=== PATIENT | female | born 1940 | race Caucasian/White ===

== ENCOUNTER 2020-08-25 15:10 | Outpatient (CLI) | payer MEDICARE, BC ==
[2020-08-25 16:26] LABS: BASOPHILS % (AUTO) 0.3 % (0.0-2.0); HEMATOCRIT 44 % (33-45); HEMOGLOBIN 14.8 g/dL (11.5-14.8); LYMPHOCYTES # (AUTO) 2.5 /CMM (0.8-4.8); LYMPHOCYTES % (AUTO) 38.1 % (20.0-44.0); MEAN CORPUSCULAR HGB CONC 34 g/dl (31.0-36.0); MEAN CORPUSCULAR VOLUME 95 fL (82-100); MONOCYTES # (AUTO) 0.4 /CMM (0.1-1.30); MONOCYTES % (AUTO) 6.3 % (2.0-12.0); NEUTROPHILS # (AUTO) 3.4 /CMM (1.8-8.9); NEUTROPHILS % (AUTO) 52.3 % (43.0-81.0); PLATELET COUNT (AUTO) 314 /CMM (150-450); RED BLOOD CELL COUNT(AUTO) 4.59 MIL/uL (4.0-5.2); WHITE BLOOD COUNT (AUTO) 6.5 K/uL (4.3-11.0)
[2020-08-25 16:44] LABS: ALBUMIN 3.7 g/dL (3.4-5.0); BILIRUBIN,TOTAL 0.3 mg/dL (0.2-1.0); CALCIUM, SERUM 8.5 mg/dL (8.5-10.1); CREATININE 0.6 mg/dL (0.6-1.3); MAGNESIUM 2.2 mg/dL (1.8-2.4); PHOSPHORUS 3.2 mg/dL (2.5-4.9); TOTAL PROTEIN, SERUM 7.3 g/dL (6.4-8.2)
[2020-08-25 16:53] LABS: FREE T4 (FREE THYROXINE) 0.84 ng/dL (0.76-1.46); THYROID STIMULATING HORMONE 2.005 uIU/mL (0.358-3.74)
== END 2020-08-25 23:59 | disposition home or self-care (01) ==
LOC: MSC 15:10
PROVIDERS: ATTEND Internal Medicine
DX: E03.9 Hypothyroidism, unspecified (principal); N95.1 Menopausal and female climacteric states; I10 Essential (primary) hypertension; E11.9 Type 2 diabetes mellitus without complications; E78.5 Hyperlipidemia, unspecified; M85.80 Other specified disorders of bone density and structure, unspecified site; Z79.51 Long term (current) use of inhaled steroids; Z79.899 Other long term (current) drug therapy
CPT/HCPCS: 80053; 83036; 83735; 84100; 84439; 84443; 85025; G0463

== ENCOUNTER 2020-11-01 13:12 | Outpatient (CLI) | payer MEDICARE, BC | END 2020-11-01 23:59 | disposition home or self-care (01) | LOC: MSC 13:12 | PROVIDERS: ATTEND Internal Medicine | DX: M25.519 Pain in unspecified shoulder (principal); M25.562 Pain in left knee; W19.XXXA Unspecified fall, initial encounter; E11.9 Type 2 diabetes mellitus without complications; I10 Essential (primary) hypertension; E03.9 Hypothyroidism, unspecified; N95.1 Menopausal and female climacteric states; E78.5 Hyperlipidemia, unspecified; M85.80 Other specified disorders of bone density and structure, unspecified site; Z79.52 Long term (current) use of systemic steroids; Z79.899 Other long term (current) drug therapy | CPT/HCPCS: 73030; 73564; G0463 ==

== ENCOUNTER → 2021-03-27 | Outpatient (CLI) | payer MEDICARE, BC | END | disposition home or self-care (01) | LOC: MSC 14:30 | PROVIDERS: ATTEND Internal Medicine | DX: Z51.89 Encounter for other specified aftercare (principal); E11.9 Type 2 diabetes mellitus without complications; I10 Essential (primary) hypertension; E03.9 Hypothyroidism, unspecified; Z79.890 Hormone replacement therapy; N95.1 Menopausal and female climacteric states; E78.5 Hyperlipidemia, unspecified; M85.80 Other specified disorders of bone density and structure, unspecified site; Z79.52 Long term (current) use of systemic steroids; Z79.899 Other long term (current) drug therapy ==

== ENCOUNTER 2021-05-01 14:00 | Outpatient (CLI) | payer MEDICARE, BC | END 2021-05-01 23:59 | disposition home or self-care (01) | LOC: MSC 14:00 | PROVIDERS: ATTEND Internal Medicine | DX: E03.9 Hypothyroidism, unspecified (principal); Z79.890 Hormone replacement therapy; E11.9 Type 2 diabetes mellitus without complications; I10 Essential (primary) hypertension; N95.1 Menopausal and female climacteric states; E78.5 Hyperlipidemia, unspecified; M85.80 Other specified disorders of bone density and structure, unspecified site; Z79.52 Long term (current) use of systemic steroids; Z79.899 Other long term (current) drug therapy ==

== ENCOUNTER → 2021-08-29 | Outpatient (CLI) | payer MEDICARE, BC | END | disposition home or self-care (01) | LOC: MSC 16:00 | PROVIDERS: ATTEND Internal Medicine | DX: E03.9 Hypothyroidism, unspecified (principal); Z79.890 Hormone replacement therapy; Z91.81 History of falling; E11.9 Type 2 diabetes mellitus without complications; I10 Essential (primary) hypertension; N95.1 Menopausal and female climacteric states; E78.5 Hyperlipidemia, unspecified; M85.80 Other specified disorders of bone density and structure, unspecified site; Z79.82 Long term (current) use of aspirin; Z79.899 Other long term (current) drug therapy ==

== ENCOUNTER → 2021-09-05 | Outpatient (CLI) | payer MEDICARE, BC | END | disposition home or self-care (01) | LOC: MSC 15:00 | PROVIDERS: ATTEND Internal Medicine | DX: E03.9 Hypothyroidism, unspecified (principal); Z79.890 Hormone replacement therapy; E78.5 Hyperlipidemia, unspecified; E11.9 Type 2 diabetes mellitus without complications; I10 Essential (primary) hypertension; N95.1 Menopausal and female climacteric states; M85.80 Other specified disorders of bone density and structure, unspecified site ==

== ENCOUNTER 2022-02-12 15:00 | Outpatient (CLI) | payer MEDICARE, BC | END 2022-02-12 23:59 | disposition home or self-care (01) | LOC: MSC 15:00 | PROVIDERS: ATTEND Internal Medicine | DX: E03.9 Hypothyroidism, unspecified (principal); Z79.890 Hormone replacement therapy; E78.5 Hyperlipidemia, unspecified; E11.9 Type 2 diabetes mellitus without complications; I10 Essential (primary) hypertension; N95.1 Menopausal and female climacteric states; M85.80 Other specified disorders of bone density and structure, unspecified site; Z91.81 History of falling ==

== ENCOUNTER 2022-04-30 11:34 | Outpatient (CLI) | payer MEDICARE, BC ==
[2022-04-30 13:10] LABS: BASOPHILS # (AUTO) 0.1 K/uL (0.0-0.2); BASOPHILS % (AUTO) 1.4 % (0.0-2.0); EOSINOPHILS % (AUTO) 2.7 % (0.0-6.0); HEMATOCRIT 42 % (33-45); HEMOGLOBIN 14.2 g/dL (11.5-14.8); LYMPHOCYTES # (AUTO) 2.8 K/uL (0.8-4.8); MEAN CORPUSCULAR HGB CONC 34 g/dl (31.0-36.0); MEAN CORPUSCULAR VOLUME 93 fL (82-100); MONOCYTES # (AUTO) 0.7 K/uL (0.1-1.30); MONOCYTES % (AUTO) 10.1 % (2.0-12.0); NEUTROPHILS # (AUTO) 2.9 K/uL (1.8-8.9); NEUTROPHILS % (AUTO) 43.8 % (43.0-81.0); PLATELET COUNT (AUTO) 308 K/uL (150-450); RED BLOOD CELL COUNT(AUTO) 4.52 MIL/uL (4.0-5.2); WHITE BLOOD COUNT (AUTO) 6.7 K/uL (4.3-11.0)
[2022-04-30 14:13] LABS: ALANINE AMINOTRANSFERASE 20 U/L (12-78); ALBUMIN 3.8 g/dL (3.4-5.0); ALKALINE PHOSPHATASE 77 U/L (46-116); ASPARTATE AMINOTRANSFERASE 24 U/L (15-37); BILIRUBIN,TOTAL 0.3 mg/dL (0.2-1.0); CALCIUM, SERUM 8.4 mg/dL (8.5-10.1); CARBON DIOXIDE 23 mmol/L (21-32); CHLORIDE 106 mmol/L (98-107); CREATININE 0.4 mg/dL (0.6-1.3); GLUCOSE 93 mg/dL (74-106); MAGNESIUM 2.1 mg/dL (1.8-2.4); PHOSPHORUS 3.7 mg/dL (2.5-4.9); POTASSIUM 4.5 mmol/L (3.5-5.1); SODIUM SERUM 140 mmol/L (136-145); TOTAL PROTEIN, SERUM 7.6 g/dL (6.4-8.2); UREA NITROGEN, BLOOD 16 mg/dL (7-18)
== END 2022-04-30 23:59 | disposition home or self-care (01) ==
LOC: MSC 11:34
PROVIDERS: ATTEND Internal Medicine
DX: M54.32 Sciatica, left side (principal); R05.9 Cough, unspecified; M79.662 Pain in left lower leg; M79.661 Pain in right lower leg; R63.5 Abnormal weight gain; E87.5 Hyperkalemia; I10 Essential (primary) hypertension; E03.9 Hypothyroidism, unspecified; Z79.890 Hormone replacement therapy; E78.5 Hyperlipidemia, unspecified; E11.9 Type 2 diabetes mellitus without complications; N95.1 Menopausal and female climacteric states; M85.80 Other specified disorders of bone density and structure, unspecified site; Z79.899 Other long term (current) drug therapy
CPT/HCPCS: 36415; 71045; 80053; 83036; 83735; 84100; 84439; 84443; 85025; G0463

== ENCOUNTER → 2022-05-07 | Outpatient (CLI) | payer MEDICARE, BC | END | disposition home or self-care (01) | LOC: MSC 14:00 | PROVIDERS: ATTEND Internal Medicine | DX: M54.32 Sciatica, left side (principal); M79.662 Pain in left lower leg; M79.661 Pain in right lower leg; H61.23 Impacted cerumen, bilateral; R63.5 Abnormal weight gain; E87.5 Hyperkalemia; I10 Essential (primary) hypertension; R05.9 Cough, unspecified; E03.9 Hypothyroidism, unspecified; Z79.890 Hormone replacement therapy; E78.5 Hyperlipidemia, unspecified; E11.9 Type 2 diabetes mellitus without complications; N95.1 Menopausal and female climacteric states; M85.80 Other specified disorders of bone density and structure, unspecified site ==

== ENCOUNTER 2022-12-26 14:30 | Outpatient (CLI) | payer MEDICARE, BC | END 2022-12-26 23:59 | disposition home or self-care (01) | LOC: MSC 14:30 | PROVIDERS: ATTEND Internal Medicine | DX: Z09 Encounter for follow-up examination after completed treatment for conditions other than malignant neoplasm (principal); M54.32 Sciatica, left side; M79.662 Pain in left lower leg; M79.661 Pain in right lower leg; H61.23 Impacted cerumen, bilateral; R63.5 Abnormal weight gain; E87.5 Hyperkalemia; I10 Essential (primary) hypertension; R05.9 Cough, unspecified; E03.9 Hypothyroidism, unspecified; Z79.890 Hormone replacement therapy; E78.5 Hyperlipidemia, unspecified; E11.9 Type 2 diabetes mellitus without complications; N95.1 Menopausal and female climacteric states; M85.80 Other specified disorders of bone density and structure, unspecified site ==

== ENCOUNTER 2023-01-29 14:00 | Outpatient (CLI) | payer MEDICARE, BC | END 2023-01-29 23:59 | disposition home or self-care (01) | LOC: WOU 14:00 | PROVIDERS: ATTEND Podiatrist Foot & Ankle Surgery | DX: L60.2 Onychogryphosis (principal); B35.1 Tinea unguium; I73.9 Peripheral vascular disease, unspecified; M79.672 Pain in left foot; M79.671 Pain in right foot | CPT/HCPCS: G0463 ==

== ENCOUNTER 2023-03-06 10:31 | Outpatient (CLI) | payer MEDICARE, BC ==
[2023-03-06 11:53] LABS: BASOPHILS # (AUTO) 0.1 K/uL (0.0-0.2); BASOPHILS % (AUTO) 1.2 % (0.0-2.0); EOSINOPHILS % (AUTO) 3.3 % (0.0-6.0); HEMATOCRIT 44 % (33-45); HEMOGLOBIN 14.5 g/dL (11.5-14.8); LYMPHOCYTES # (AUTO) 2.2 K/uL (0.8-4.8); MEAN CORPUSCULAR HGB CONC 33 g/dl (31.0-36.0); MEAN CORPUSCULAR VOLUME 94 fL (82-100); MONOCYTES # (AUTO) 0.6 K/uL (0.1-1.30); MONOCYTES % (AUTO) 9.3 % (2.0-12.0); NEUTROPHILS # (AUTO) 2.9 K/uL (1.8-8.9); NEUTROPHILS % (AUTO) 49.2 % (43.0-81.0); PLATELET COUNT (AUTO) 328 K/uL (150-450); RED BLOOD CELL COUNT(AUTO) 4.71 MIL/uL (4.0-5.2)
[2023-03-06 12:46] LABS: ALBUMIN 3.7 g/dL (3.4-5.0); BILIRUBIN,TOTAL 0.4 mg/dL (0.2-1.0); CREATININE 0.6 mg/dL (0.6-1.3); MAGNESIUM 2.2 mg/dL (1.8-2.4); PHOSPHORUS 3.9 mg/dL (2.5-4.9); POTASSIUM 3.9 mmol/L (3.5-5.1); TOTAL PROTEIN, SERUM 7.3 g/dL (6.4-8.2)
[2023-03-06 13:29] LABS: C-REACTIVE PROTEIN 0.2 mg/dL (0.0-0.9)
[2023-03-06 14:16] LABS: THYROID STIMULATING HORMONE 1.538 uIU/mL (0.358-3.74)
== END 2023-03-06 23:59 | disposition home or self-care (01) ==
LOC: MSC 10:31
PROVIDERS: ATTEND Internal Medicine
DX: R51.9 Headache, unspecified (principal); H53.8 Other visual disturbances; F41.8 Other specified anxiety disorders; M54.32 Sciatica, left side; M79.662 Pain in left lower leg; M79.661 Pain in right lower leg; H61.23 Impacted cerumen, bilateral; R63.5 Abnormal weight gain; E87.5 Hyperkalemia; I10 Essential (primary) hypertension; R05.9 Cough, unspecified; Z79.890 Hormone replacement therapy; E78.5 Hyperlipidemia, unspecified; E11.9 Type 2 diabetes mellitus without complications; N95.1 Menopausal and female climacteric states; M85.80 Other specified disorders of bone density and structure, unspecified site
CPT/HCPCS: 80061; 85025; 83735; 83036; 84100; 85652; 36415; 82746; 84443; 82607; 80053; 86140; G0463

== ENCOUNTER 2023-03-12 13:00 | Outpatient (CLI) | payer MEDICARE, BC | END 2023-03-12 23:59 | disposition home or self-care (01) | LOC: MRI 13:00 | PROVIDERS: ATTEND Internal Medicine | DX: I61.0 Nontraumatic intracerebral hemorrhage in hemisphere, subcortical (principal); R51.9 Headache, unspecified; H53.8 Other visual disturbances | CPT/HCPCS: 70551-TC ==

== ENCOUNTER 2023-03-13 14:00 | Outpatient (CLI) | payer MEDICARE, BC | END 2023-03-13 23:59 | disposition home or self-care (01) | LOC: MSC 14:00 | PROVIDERS: ATTEND Internal Medicine | DX: R51.9 Headache, unspecified (principal); H53.8 Other visual disturbances; I10 Essential (primary) hypertension; F41.8 Other specified anxiety disorders; M54.32 Sciatica, left side; M79.662 Pain in left lower leg; M79.661 Pain in right lower leg; H61.23 Impacted cerumen, bilateral; R63.5 Abnormal weight gain; E87.5 Hyperkalemia; E78.5 Hyperlipidemia, unspecified; R05.9 Cough, unspecified; E03.9 Hypothyroidism, unspecified; Z79.890 Hormone replacement therapy; E11.9 Type 2 diabetes mellitus without complications; N95.1 Menopausal and female climacteric states; M85.80 Other specified disorders of bone density and structure, unspecified site ==

== ENCOUNTER 2023-04-02 14:05 | Outpatient (CLI) | payer MEDICARE, BC | END 2023-04-02 23:59 | disposition home or self-care (01) | LOC: WOU 14:05 | PROVIDERS: ATTEND Podiatrist Foot & Ankle Surgery | DX: L60.2 Onychogryphosis (principal); B35.1 Tinea unguium; I73.9 Peripheral vascular disease, unspecified; M79.672 Pain in left foot; M79.671 Pain in right foot; I10 Essential (primary) hypertension; E03.9 Hypothyroidism, unspecified | CPT/HCPCS: G0463 ==

== ENCOUNTER 2025-05-17 11:40 | Inpatient (IN) | payer MEDICARE, BC ==
[~2025-05-17] VITALS: Ht 142.2 cm; Wt 48.6 kg
[2025-05-17 12:06] LABS: PLATELET COUNT (AUTO) 353 K/uL (150-450); RED BLOOD CELL COUNT(AUTO) 5.19 MIL/uL (4.0-5.2); RED CELL DISTRIBUTION WIDTH 14.5 % (11.5-15.0); WHITE BLOOD COUNT (AUTO) 18.7 K/uL (4.3-11.0)
[2025-05-17] MEDS ORDERED: ONDANSETRON HCL/PF 4 MG/2 ML VIAL ONE (12:08)
[2025-05-17] MEDS ORDERED: MORPHINE SULFATE INJ 2 MG/ML DISP.SYRIN ONE (12:08)
[2025-05-17 12:11] LABS: CALCIUM, SERUM 9.2 mg/dL (8.5-10.1); CREATININE 0.7 mg/dL (0.6-1.3); SODIUM SERUM 131 mmol/L (136-145); UREA NITROGEN, BLOOD 25 mg/dL (7-18)
[2025-05-17 12:17] LABS: ASPARTATE AMINOTRANSFERASE 16 U/L (15-37); TOTAL PROTEIN, SERUM 7.6 g/dL (6.4-8.2)
[2025-05-17] MEDS: IV NS 0.9% 1,000 ML BAG IV ONE (12:39)
[2025-05-17] MEDS: MORPHINE SULFATE INJ 2 MG/ML DISP.SYRIN IV ONE (12:40)
[2025-05-17] MEDS: ONDANSETRON HCL/PF 4 MG/2 ML VIAL IVP ONE (12:40)
[2025-05-17] MEDS ORDERED: LACT-239 PO (12:58)
[2025-05-17] MEDS ORDERED: LOPE2CAP40 PO (12:58)
[2025-05-17] MEDS ORDERED: LEVO75TA7 PO ×2 (12:58)
[2025-05-17] MEDS ORDERED: VALS160T29 PO (12:58)
[2025-05-17] MEDS: PIPERACILLIN /TAZOBACTAM 3.375 G in IV D5W 50 ML IV ONE (13:29)
[2025-05-17 13:30] LABS: APPEARANCE,URINE CLEAR (CLEAR); BLOOD, URINE Small Ery/uL (NEGATIVE); LEUKOCYTE ESTERASE ,URINE Negative (NEGATIVE); UGLUCOSE Negative (NEGATIVE)
[2025-05-17 13:32] LABS: NITRITE, URINE NEGATIVE (NEGATIVE)
[2025-05-17 13:34] LABS: ADD URINE CULTURE NO; SQUAMOUS EPITHELIAL CELL,UR Many /HPF (None Seen)
[2025-05-17] MEDS ORDERED: MAG HYDROX/AL HYDROX/SIMETH 30 ML UDC PO PRN (14:30)
[2025-05-17] MEDS ORDERED: MAGNESIUM HYDROXIDE 30 ML UDC PO PRN (14:30)
[2025-05-17] MEDS ORDERED: ONDANSETRON HCL/PF 4 MG/2 ML VIAL IVP PRN (14:30)
[2025-05-17] MEDS ORDERED: DOSING PER PHARMACY-ZOSYN IV 1 EA EA XX PRN (14:30)
[2025-05-17] MEDS ORDERED: MORPHINE SULFATE INJ 2 MG/ML DISP.SYRIN IV PRN (14:30)
[2025-05-17] MEDS: IV NS 0.9% 1,000 ML IV PRN (15:45)
[2025-05-17 16:17] VITALS: BP 124/48; TEMP 98.6; O2SAT 94
[2025-05-17] MEDS ORDERED: PIPERACILLIN /TAZOBACTAM 3.375 G in IV D5W 50 ML IV SCH (18:00)
[2025-05-17] MEDS: ZOSYN IVPB 2.25 G in IV D5W 50ml IV SCH (18:25)
[2025-05-17] MEDS: MORPHINE SULFATE INJ 2 MG/ML DISP.SYRIN IV PRN (18:26)
[2025-05-17 20:00] VITALS: BP_SYST 130; BP_SYST 142; BP_DIAS 47; BP_DIAS 58; TEMP 97.3; TEMP 98.2; O2SAT 100; O2SAT 96
[2025-05-18 06:55] LABS: PLATELET COUNT (AUTO) 301 K/uL (150-450); RED BLOOD CELL COUNT(AUTO) 4.68 MIL/uL (4.0-5.2); RED CELL DISTRIBUTION WIDTH 14.3 % (11.5-15.0); WHITE BLOOD COUNT (AUTO) 14.0 K/uL (4.3-11.0)
[2025-05-18 07:04] LABS: CALCIUM, SERUM 8.4 mg/dL (8.5-10.1); CREATININE 0.5 mg/dL (0.6-1.3); PHOSPHORUS 3.0 mg/dL (2.5-4.9); SODIUM SERUM 135.0 mmol/L (136-145); UREA NITROGEN, BLOOD 16.0 mg/dL (7-18)
[2025-05-18 08:00] VITALS: BP 108/50; TEMP 97.9; O2SAT 94
[2025-05-18 16:00] VITALS: BP 114/46; TEMP 97.9; O2SAT 97
[2025-05-18 20:00] VITALS: BP 127/45; TEMP 98.8; O2SAT 96
[2025-05-19 06:47] LABS: PLATELET COUNT (AUTO) 321 K/uL (150-450); RED BLOOD CELL COUNT(AUTO) 4.40 MIL/uL (4.0-5.2); RED CELL DISTRIBUTION WIDTH 14.2 % (11.5-15.0); WHITE BLOOD COUNT (AUTO) 12.7 K/uL (4.3-11.0)
[2025-05-19 07:00] VITALS: BP 118/59; TEMP 97.5; O2SAT 98
[2025-05-19 07:45] LABS: CALCIUM, SERUM 8.2 mg/dL (8.5-10.1); CREATININE 0.5 mg/dL (0.6-1.3); PHOSPHORUS 2.8 mg/dL (2.5-4.9); SODIUM SERUM 138.0 mmol/L (136-145); UREA NITROGEN, BLOOD 16.0 mg/dL (7-18)
[2025-05-19] MEDS: POLYVINYL ALCOHOL 15 ML BOTTLE EACHEYE PRN (09:19)
[2025-05-19] MEDS: DEXTROSE 50%-WATER 50 ML DISP.SYRIN IVP ONE (13:55)
[2025-05-19 16:00] VITALS: BP 136/96; TEMP 98.2; O2SAT 97
[2025-05-19] MEDS ORDERED: BLOOD SUGAR DIAGNOSTIC 1 EACH STRIP IN SCH (18:00)
[2025-05-19 20:00] VITALS: BP 145/55; TEMP 97.5; O2SAT 96
[2025-05-20] MEDS: ACETAMINOPHEN 325 MG TABLET PO PRN (01:36)
[2025-05-20 06:35] LABS: PLATELET COUNT (AUTO) 310 K/uL (150-450); RED BLOOD CELL COUNT(AUTO) 4.27 MIL/uL (4.0-5.2); RED CELL DISTRIBUTION WIDTH 14.0 % (11.5-15.0); WHITE BLOOD COUNT (AUTO) 10.5 K/uL (4.3-11.0)
[2025-05-20 07:11] LABS: ASPARTATE AMINOTRANSFERASE 12.0 U/L (15-37); CALCIUM, SERUM 7.9 mg/dL (8.5-10.1); CREATININE 0.4 mg/dL (0.6-1.3); PHOSPHORUS 1.9 mg/dL (2.5-4.9); SODIUM SERUM 137.0 mmol/L (136-145); TOTAL PROTEIN, SERUM 5.8 g/dL (6.4-8.2); UREA NITROGEN, BLOOD 9.0 mg/dL (7-18)
[2025-05-20 08:00] VITALS: BP 139/52; TEMP 98.1; O2SAT 98
[2025-05-20] MEDS: VALSARTAN 80 MG TABLET PO SCH (09:09)
[2025-05-20] MEDS: LEVOTHYROXINE SODIUM 75 MCG TABLET PO SCH (09:09)
[2025-05-20] MEDS: POTASSIUM CHLORIDE 20 MEQ POWDER PACKET PO SCH (13:17)
[2025-05-20] MEDS: POTASSIUM PHOSPHATE MM 5 MMOL in IV NS 0.9% 100 ML IV SCH (13:18)
[2025-05-20 16:00] VITALS: BP 165/61; TEMP 97.9; O2SAT 98
[2025-05-20 20:00] VITALS: BP 163/64; TEMP 98.2; O2SAT 98
[2025-05-21 06:08] LABS: T3 TOTAL 37.0 ng/dL (71-180); T3, FREE 0.9 pg/mL (2.0-4.4)
[2025-05-21 07:40] LABS: PLATELET COUNT (AUTO) 330 K/uL (150-450); RED BLOOD CELL COUNT(AUTO) 4.57 MIL/uL (4.0-5.2); RED CELL DISTRIBUTION WIDTH 14.0 % (11.5-15.0); WHITE BLOOD COUNT (AUTO) 11.0 K/uL (4.3-11.0)
[2025-05-21 08:00] VITALS: BP 140/55; TEMP 98.4; O2SAT 98
[2025-05-21 08:13] LABS: ASPARTATE AMINOTRANSFERASE 14 U/L (15-37); CALCIUM, SERUM 7.9 mg/dL (8.5-10.1); CREATININE 0.3 mg/dL (0.6-1.3); PHOSPHORUS 2.0 mg/dL (2.5-4.9); SODIUM SERUM 135 mmol/L (136-145); TOTAL PROTEIN, SERUM 6.0 g/dL (6.4-8.2); UREA NITROGEN, BLOOD 2 mg/dL (7-18)
[2025-05-21] MEDS: NEUTRA PHOS 1 POWD.PACKET PO ONE (14:38)
[2025-05-21 16:00] VITALS: BP 149/59; TEMP 97.9; O2SAT 97
[2025-05-21] MEDS ORDERED: IV NS 0.9% 250 ML IV ONE (17:43)
[2025-05-21] MEDS ORDERED: CT SWABBABLE VALVE TRANS SET 1 EA INFUS.SET MC ONE (17:43)
[2025-05-21] MEDS ORDERED: IOHEXOL-300 100 ML VIAL IV ONE (17:43)
[2025-05-21] MEDS ORDERED: DIATR MEGLU/DIATRIZOATE SODIUM 120 ML BOTTLE (GASTROGRAPHIN) ONE (17:44)
[2025-05-21 20:00] VITALS: BP 145/64; TEMP 98.6; O2SAT 96
[2025-05-22 07:43] LABS: PLATELET COUNT (AUTO) 303 K/uL (150-450); RED BLOOD CELL COUNT(AUTO) 4.63 MIL/uL (4.0-5.2); RED CELL DISTRIBUTION WIDTH 14.2 % (11.5-15.0); WHITE BLOOD COUNT (AUTO) 10.4 K/uL (4.3-11.0)
[2025-05-22 08:00] VITALS: BP 131/58; TEMP 98.1; O2SAT 98
[2025-05-22] MEDS: LEVOTHYROXINE SODIUM 75 MCG TABLET PO SCH (08:04)
[2025-05-22] MEDS ORDERED: LIOTHYRONINE SODIUM (5 MCG/TA 5 MCG TABLET PO SCH (08:30)
[2025-05-22 09:23] LABS: ASPARTATE AMINOTRANSFERASE 9 U/L (15-37); CALCIUM, SERUM 7.8 mg/dL (8.5-10.1); CREATININE 0.3 mg/dL (0.6-1.3); PHOSPHORUS 2.7 mg/dL (2.5-4.9); TOTAL PROTEIN, SERUM 6.0 g/dL (6.4-8.2); UREA NITROGEN, BLOOD 3 mg/dL (7-18)
[2025-05-22] MEDS: LIOTHYRONINE SODIUM (5 MCG/TA 5 MCG TABLET PO SCH (09:44)
[2025-05-22 10:49] LABS: SODIUM SERUM 137 mmol/L (136-145)
[2025-05-22] MEDS: POTASSIUM CHLORIDE 20 MEQ POWDER PACKET PO SCH (12:35)
[2025-05-22 16:00] VITALS: BP 150/59; TEMP 97.7; O2SAT 100
[2025-05-22 20:44] VITALS: BP 150/63; TEMP 98.1; O2SAT 99
[2025-05-23 07:40] LABS: PLATELET COUNT (AUTO) 352 K/uL (150-450); RED BLOOD CELL COUNT(AUTO) 4.86 MIL/uL (4.0-5.2); RED CELL DISTRIBUTION WIDTH 14.3 % (11.5-15.0); WHITE BLOOD COUNT (AUTO) 9.7 K/uL (4.3-11.0)
[2025-05-23 08:13] VITALS: BP 148/60; TEMP 98.1; O2SAT 100
[2025-05-23 08:50] LABS: INR 1.13 (0.91-1.10)
[2025-05-23 11:28] LABS: CALCIUM, SERUM 8.2 mg/dL (8.5-10.1); CREATININE 0.4 mg/dL (0.6-1.3); PHOSPHORUS 2.6 mg/dL (2.5-4.9); SODIUM SERUM 138.0 mmol/L (136-145); UREA NITROGEN, BLOOD 1.0 mg/dL (7-18)
[2025-05-23 12:20] LABS: ASPARTATE AMINOTRANSFERASE 15.0 U/L (15-37); TOTAL PROTEIN, SERUM 6.1 g/dL (6.4-8.2)
[2025-05-23 16:16] VITALS: BP 136/58; TEMP 97.8; O2SAT 98
[2025-05-23] MEDS: ENSURE ENLIVE 237 ML LIQUID (VANILLA) PO SCH (17:22)
[2025-05-23 20:00] VITALS: BP 137/60; TEMP 98.4; O2SAT 97
[2025-05-23 20:12] VITALS: BP 137/60; TEMP 98.4; O2SAT 97
[2025-05-24 06:32] LABS: PLATELET COUNT (AUTO) 369 K/uL (150-450); RED BLOOD CELL COUNT(AUTO) 4.62 MIL/uL (4.0-5.2); RED CELL DISTRIBUTION WIDTH 13.9 % (11.5-15.0); WHITE BLOOD COUNT (AUTO) 9.7 K/uL (4.3-11.0)
[2025-05-24 07:24] LABS: CALCIUM, SERUM 8.0 mg/dL (8.5-10.1); CREATININE 0.4 mg/dL (0.6-1.3); SODIUM SERUM 135.0 mmol/L (136-145); UREA NITROGEN, BLOOD 3.0 mg/dL (7-18)
[2025-05-24 07:30] VITALS: BP 134/56; TEMP 98.1; O2SAT 98
[2025-05-24] MEDS: POTASSIUM CHLORIDE 20 MEQ POWDER PACKET PO ONE (10:43)
[2025-05-24 16:00] VITALS: BP 139/54; TEMP 98.4; O2SAT 98
[2025-05-24 16:22] LABS: APPEARANCE,URINE CLEAR (CLEAR); BLOOD, URINE NEGATIVE Ery/uL (NEGATIVE); LEUKOCYTE ESTERASE ,URINE 1+ (NEGATIVE); NITRITE, URINE NEGATIVE (NEGATIVE); UGLUCOSE NEGATIVE (NEGATIVE)
[2025-05-24 16:31] LABS: ADD URINE CULTURE YES; SQUAMOUS EPITHELIAL CELL,UR Few /HPF (None Seen)
[2025-05-24 16:40] LABS: CREATININE, URINE 20.2 MG/DL (30.0-125.0); URINE SODIUM, RANDOM 113.0 mmol/l (40-220); URINE TOTAL PROTEIN 32.5 mg/dL (0-11.9)
[2025-05-24 16:42] LABS: EOSINOPHIL,URINE None Seen
[2025-05-24 20:00] VITALS: BP 143/54; TEMP 97.9; O2SAT 96
[2025-05-25 07:00] VITALS: BP 143/60; TEMP 98.1; O2SAT 98
[2025-05-25 07:38] LABS: PLATELET COUNT (AUTO) 402 K/uL (150-450); RED BLOOD CELL COUNT(AUTO) 4.56 MIL/uL (4.0-5.2); RED CELL DISTRIBUTION WIDTH 13.9 % (11.5-15.0); WHITE BLOOD COUNT (AUTO) 13.4 K/uL (4.3-11.0)
[2025-05-25 07:52] LABS: CALCIUM, SERUM 7.6 mg/dL (8.5-10.1); CREATININE 0.3 mg/dL (0.6-1.3); SODIUM SERUM 136.0 mmol/L (136-145); UREA NITROGEN, BLOOD 3.0 mg/dL (7-18)
[2025-05-25] MEDS ORDERED: IV NS 0.9% 500 ML BAG IV ONE (10:00)
[2025-05-25] MEDS ORDERED: DIATR MEGLU/DIATRIZOATE SODIUM 30 ML BOTTLE (GASTROGRAPHIN) ONE (10:08)
[2025-05-25] MEDS: IV NS 0.9% 1,000 ML IV SCH (13:49)
[2025-05-25 16:00] VITALS: BP 165/57; TEMP 98.1; O2SAT 99
[2025-05-25 20:00] VITALS: BP 145/49; TEMP 98.1; O2SAT 97
[2025-05-25 22:00] VITALS: BP 148/62
[2025-05-26 07:41] LABS: PLATELET COUNT (AUTO) 451 K/uL (150-450); RED BLOOD CELL COUNT(AUTO) 4.62 MIL/uL (4.0-5.2); RED CELL DISTRIBUTION WIDTH 13.8 % (11.5-15.0); WHITE BLOOD COUNT (AUTO) 12.4 K/uL (4.3-11.0)
[2025-05-26 08:02] VITALS: BP 153/57; TEMP 98.6; O2SAT 97
[2025-05-26 08:07] LABS: CALCIUM, SERUM 8.1 mg/dL (8.5-10.1); CREATININE 0.3 mg/dL (0.6-1.3); SODIUM SERUM 138.0 mmol/L (136-145); UREA NITROGEN, BLOOD 3.0 mg/dL (7-18)
[2025-05-26] MEDS: PIPERACILLIN /TAZOBACTAM 3.375 G in IV D5W 100 ML IV SCH (13:16)
[2025-05-26 16:00] VITALS: BP 149/51; TEMP 98.2; O2SAT 99
[2025-05-26 21:40] VITALS: BP 142/49; TEMP 98.4; O2SAT 96
[2025-05-27 07:30] VITALS: BP 122/54; TEMP 98.6; O2SAT 98
[2025-05-27 07:44] LABS: PLATELET COUNT (AUTO) 459 K/uL (150-450); RED BLOOD CELL COUNT(AUTO) 4.58 MIL/uL (4.0-5.2); RED CELL DISTRIBUTION WIDTH 13.8 % (11.5-15.0); WHITE BLOOD COUNT (AUTO) 11.1 K/uL (4.3-11.0)
[2025-05-27 08:06] LABS: CALCIUM, SERUM 8.5 mg/dL (8.5-10.1); CREATININE 0.3 mg/dL (0.6-1.3); SODIUM SERUM 137.0 mmol/L (136-145); UREA NITROGEN, BLOOD 5.0 mg/dL (7-18)
[2025-05-27 16:26] VITALS: BP 122/50; TEMP 98.1; O2SAT 97
[2025-05-27 20:00] VITALS: BP 130/60; TEMP 98.2; O2SAT 97
[2025-05-28 07:51] LABS: PLATELET COUNT (AUTO) 486 K/uL (150-450); RED BLOOD CELL COUNT(AUTO) 4.40 MIL/uL (4.0-5.2); RED CELL DISTRIBUTION WIDTH 13.9 % (11.5-15.0); WHITE BLOOD COUNT (AUTO) 11.6 K/uL (4.3-11.0)
[2025-05-28 08:00] VITALS: BP 117/53; TEMP 97.9; O2SAT 98
[2025-05-28 08:47] LABS: CALCIUM, SERUM 8.2 mg/dL (8.5-10.1); CREATININE 0.4 mg/dL (0.6-1.3); SODIUM SERUM 136.0 mmol/L (136-145); UREA NITROGEN, BLOOD 6.0 mg/dL (7-18)
[2025-05-28 16:00] VITALS: BP 121/60; TEMP 97.9; O2SAT 97
[2025-05-28 20:00] VITALS: BP 130/43; TEMP 98.4; O2SAT 98
[2025-05-29 07:53] LABS: CALCIUM, SERUM 8.5 mg/dL (8.5-10.1); CREATININE 0.4 mg/dL (0.6-1.3); SODIUM SERUM 136.0 mmol/L (136-145); UREA NITROGEN, BLOOD 8.0 mg/dL (7-18)
[2025-05-29 08:25] VITALS: BP 132/54; TEMP 98.1; O2SAT 99
[2025-05-29 16:14] VITALS: BP 142/54; TEMP 98.8; O2SAT 99
[2025-05-29 20:43] VITALS: BP 136/59; TEMP 98.6; O2SAT 98
[2025-05-30 06:57] LABS: PLATELET COUNT (AUTO) 518 K/uL (150-450); RED BLOOD CELL COUNT(AUTO) 4.30 MIL/uL (4.0-5.2); RED CELL DISTRIBUTION WIDTH 14.2 % (11.5-15.0); WHITE BLOOD COUNT (AUTO) 9.4 K/uL (4.3-11.0)
[2025-05-30 07:18] LABS: CALCIUM, SERUM 8.5 mg/dL (8.5-10.1); CREATININE 0.4 mg/dL (0.6-1.3); SODIUM SERUM 134.0 mmol/L (136-145); UREA NITROGEN, BLOOD 7.0 mg/dL (7-18)
[2025-05-30 08:00] VITALS: BP 118/61; TEMP 97.9; O2SAT 97
[2025-05-30 16:00] VITALS: BP 135/68; TEMP 98.6; O2SAT 97
[2025-05-31 07:52] LABS: CALCIUM, SERUM 8.6 mg/dL (8.5-10.1); CREATININE 0.3 mg/dL (0.6-1.3); SODIUM SERUM 130.0 mmol/L (136-145); UREA NITROGEN, BLOOD 8.0 mg/dL (7-18)
[2025-05-31 08:00] VITALS: BP 129/62; TEMP 98.1; O2SAT 98
[2025-05-31] MEDS: SODIUM CHLORIDE 1000 MG TABLET PO SCH (10:49)
[2025-05-31 14:30] LABS: PLATELET COUNT (AUTO) 647 K/uL (150-450); RED BLOOD CELL COUNT(AUTO) 4.48 MIL/uL (4.0-5.2); RED CELL DISTRIBUTION WIDTH 13.9 % (11.5-15.0); WHITE BLOOD COUNT (AUTO) 11.7 K/uL (4.3-11.0)
[2025-05-31 16:00] VITALS: BP 132/53; TEMP 97.9; O2SAT 97
[2025-05-31 20:00] VITALS: BP 140/49; TEMP 98.8; O2SAT 96
[2025-06-01 07:00] VITALS: BP 122/55; TEMP 98.2; O2SAT 97
[2025-06-01 07:42] LABS: PLATELET COUNT (AUTO) 640 K/uL (150-450); RED BLOOD CELL COUNT(AUTO) 4.77 MIL/uL (4.0-5.2); RED CELL DISTRIBUTION WIDTH 14.5 % (11.5-15.0); WHITE BLOOD COUNT (AUTO) 9.8 K/uL (4.3-11.0)
[2025-06-01 07:44] LABS: CALCIUM, SERUM 9.3 mg/dL (8.5-10.1); CREATININE 0.4 mg/dL (0.6-1.3); PHOSPHORUS 3.8 mg/dL (2.5-4.9); SODIUM SERUM 132.0 mmol/L (136-145); UREA NITROGEN, BLOOD 14.0 mg/dL (7-18)
[2025-06-01] MEDS: SODIUM CHLORIDE 1000 MG TABLET PO SCH (11:23)
[2025-06-01] MEDS: LACTOBACILLUS RHAMNOSUS GG 1 EACH CAP.SPRINK PO SCH (15:23)
[2025-06-01 16:00] VITALS: BP 138/56; TEMP 98.2; O2SAT 99
[2025-06-01 20:00] VITALS: BP_SYST 135; BP_SYST 137; BP_DIAS 58; TEMP 97.9; O2SAT 99
[2025-06-02 07:30] VITALS: BP 132/57; TEMP 98.1; O2SAT 100
[2025-06-02] MEDS: LEVOTHYROXINE SODIUM 100 MCG TABLET PO SCH (09:24)
[2025-06-02] MEDS: CLOTRIMAZOLE 1% 15 GM TUBE TP SCH (09:58)
[2025-06-02 11:25] LABS: PLATELET COUNT (AUTO) 687 K/uL (150-450); RED BLOOD CELL COUNT(AUTO) 4.55 MIL/uL (4.0-5.2); RED CELL DISTRIBUTION WIDTH 14.5 % (11.5-15.0); WHITE BLOOD COUNT (AUTO) 7.6 K/uL (4.3-11.0)
[2025-06-02 11:42] LABS: CALCIUM, SERUM 8.9 mg/dL (8.5-10.1); CREATININE 0.3 mg/dL (0.6-1.3); SODIUM SERUM 134.0 mmol/L (136-145); UREA NITROGEN, BLOOD 15.0 mg/dL (7-18)
[2025-06-02 12:29] LABS: PHOSPHORUS 3.3 mg/dL (2.5-4.9)
[2025-06-02 16:00] VITALS: BP 127/58; TEMP 98.1; O2SAT 99
[2025-06-02 20:00] VITALS: BP 138/43; TEMP 98.2; O2SAT 98
[2025-06-03 07:59] LABS: CALCIUM, SERUM 8.8 mg/dL (8.5-10.1); CREATININE 0.4 mg/dL (0.6-1.3); SODIUM SERUM 134.0 mmol/L (136-145); UREA NITROGEN, BLOOD 17.0 mg/dL (7-18)
[2025-06-03 08:00] VITALS: BP 129/44; TEMP 98.1; O2SAT 99
[2025-06-03 09:18] LABS: PLATELET COUNT (AUTO) 653 K/uL (150-450); RED BLOOD CELL COUNT(AUTO) 4.76 MIL/uL (4.0-5.2); RED CELL DISTRIBUTION WIDTH 14.0 % (11.5-15.0); WHITE BLOOD COUNT (AUTO) 6.4 K/uL (4.3-11.0)
[2025-06-03 16:00] VITALS: BP 130/48; TEMP 98.2; O2SAT 98
[2025-06-03 20:00] VITALS: BP 112/41; TEMP 98.1; O2SAT 96
[2025-06-04 07:00] VITALS: BP 115/53; TEMP 98.2; O2SAT 98
[2025-06-04 07:32] LABS: PLATELET COUNT (AUTO) 647 K/uL (150-450); RED BLOOD CELL COUNT(AUTO) 4.34 MIL/uL (4.0-5.2); RED CELL DISTRIBUTION WIDTH 14.2 % (11.5-15.0); WHITE BLOOD COUNT (AUTO) 7.2 K/uL (4.3-11.0)
[2025-06-04 07:55] LABS: ASPARTATE AMINOTRANSFERASE 13.0 U/L (15-37); CALCIUM, SERUM 8.5 mg/dL (8.5-10.1); CREATININE 0.4 mg/dL (0.6-1.3); PHOSPHORUS 3.4 mg/dL (2.5-4.9); SODIUM SERUM 135.0 mmol/L (136-145); TOTAL PROTEIN, SERUM 6.9 g/dL (6.4-8.2); UREA NITROGEN, BLOOD 18.0 mg/dL (7-18)
[2025-06-04 16:00] VITALS: BP 133/54; TEMP 97.9; O2SAT 96
[2025-06-04] MEDS: Z GUARD REMEDY 4 OZ OINT TP PRN (19:05)
[2025-06-04 20:00] VITALS: BP 139/54; TEMP 97.9; O2SAT 97
[2025-06-05 08:00] VITALS: BP 152/61; TEMP 98.2; O2SAT 100
[2025-06-05 16:00] VITALS: BP 151/62; TEMP 98.2; O2SAT 96
[2025-06-05 20:00] VITALS: BP 138/60; TEMP 98.1; O2SAT 98
[2025-06-05 21:18] VITALS: BP 138/60; TEMP 98.1; O2SAT 98
[2025-06-06 08:00] VITALS: BP 128/60; TEMP 97.9; O2SAT 97
[2025-06-06 09:25] VITALS: BP 128/60; TEMP 97.9; O2SAT 97
[2025-06-06 16:00] VITALS: BP 151/65; TEMP 98.1; O2SAT 96
[2025-06-06 16:05] LABS: PLATELET COUNT (AUTO) 640 K/uL (150-450); RED BLOOD CELL COUNT(AUTO) 4.44 MIL/uL (4.0-5.2); RED CELL DISTRIBUTION WIDTH 14.0 % (11.5-15.0); WHITE BLOOD COUNT (AUTO) 11.2 K/uL (4.3-11.0)
[2025-06-06 16:38] LABS: CALCIUM, SERUM 8.8 mg/dL (8.5-10.1); CREATININE 0.5 mg/dL (0.6-1.3); SODIUM SERUM 135.0 mmol/L (136-145); UREA NITROGEN, BLOOD 18.0 mg/dL (7-18)
[2025-06-07 08:00] VITALS: BP 116/80; TEMP 98.1; O2SAT 99
[2025-06-07 16:00] VITALS: BP 120/60; TEMP 98.6; O2SAT 97
[2025-06-08 07:04] LABS: PLATELET COUNT (AUTO) 603 K/uL (150-450); RED BLOOD CELL COUNT(AUTO) 4.37 MIL/uL (4.0-5.2); RED CELL DISTRIBUTION WIDTH 14.0 % (11.5-15.0); WHITE BLOOD COUNT (AUTO) 7.6 K/uL (4.3-11.0)
[2025-06-08 07:29] LABS: ASPARTATE AMINOTRANSFERASE 14.0 U/L (15-37); CALCIUM, SERUM 8.4 mg/dL (8.5-10.1); CREATININE 0.4 mg/dL (0.6-1.3); PHOSPHORUS 3.5 mg/dL (2.5-4.9); SODIUM SERUM 135.0 mmol/L (136-145); TOTAL PROTEIN, SERUM 6.9 g/dL (6.4-8.2); UREA NITROGEN, BLOOD 19.0 mg/dL (7-18)
[2025-06-08 10:04] VITALS: BP 114/61; TEMP 98.2; O2SAT 95
[2025-06-08] MEDS ORDERED: SODI100037 PO (13:09)
[2025-06-08] MEDS ORDERED: LACT1CAP72 PO (13:09)
[2025-06-08] MEDS ORDERED: LIOT5TAB7 PO (13:09)
[2025-06-08] MEDS ORDERED: CLOT15CR35 TP (13:09)
[2025-06-08] MEDS ORDERED: ERTA1VIA4 IJ (13:09)
[2025-06-09] MEDS ORDERED: AMOX-427 PO (11:04)
== END 2025-06-08 18:00 | disposition home health service (06) | DRG 392 ==
LOC: ER 11:44 → MED 13:40
PROVIDERS: ADMIT Internal Medicine; ATTEND Nurse Practitioner Acute Care
DX: K57.20 Diverticulitis of large intestine with perforation and abscess without bleeding (principal); E44.0 Moderate protein-calorie malnutrition; N17.9 Acute kidney failure, unspecified; E22.2 Syndrome of inappropriate secretion of antidiuretic hormone; E03.9 Hypothyroidism, unspecified; I10 Essential (primary) hypertension; E78.5 Hyperlipidemia, unspecified; E88.09 Other disorders of plasma-protein metabolism, not elsewhere classified; E87.6 Hypokalemia; E83.39 Other disorders of phosphorus metabolism; I25.10 Atherosclerotic heart disease of native coronary artery without angina pectoris; Z86.73 Personal history of transient ischemic attack (TIA), and cerebral infarction without residual deficits; Z90.710 Acquired absence of both cervix and uterus; M89.8X9 Other specified disorders of bone, unspecified site; E11.9 Type 2 diabetes mellitus without complications; E83.9 Disorder of mineral metabolism, unspecified; F32.9 Major depressive disorder, single episode, unspecified; F41.9 Anxiety disorder, unspecified; N81.10 Cystocele, unspecified; K62.3 Rectal prolapse; Z68.24 Body mass index [BMI] 24.0-24.9, adult; E86.9 Volume depletion, unspecified; Z53.20 Procedure and treatment not carried out because of patient's decision for unspecified reasons
CPT/HCPCS: 36415; 80048-TC; 80053-TC; 80076-TC; 81001; 82570-TC; 82962-TC; 83690-TC; 83735-TC; 84100-TC; 84134-TC; 84300-TC; 84439-TC; 84443-TC; 84480; 84481; 84550-TC; 85025-TC; 85610-TC; 85730-TC; 87040-TC; 87086-TC; 93970-TC; 97110-TC; 97116-TC; 97530-TC; A4223; A6213; G0378; J2270; J2405; J2543; J3490; J7030; J7050; J7060; Q9963; Q9967